=== PATIENT | male | born 1965 | race Caucasian/White ===

== ENCOUNTER 2018-03-06 16:22 | Emergency (ER) | payer SELFPAY | END 2018-03-07 07:32 | disposition left against medical advice (07) | LOC: ER 03-07 07:08 | DX: Z53.21 Procedure and treatment not carried out due to patient leaving prior to being seen by health care provider (principal) ==

== ENCOUNTER 2019-09-11 12:41 | Emergency (ER) | payer SELFPAY ==
[~2019-09-11] VITALS: Ht 160 cm; Wt 65.0 kg
[2019-09-11 12:53] VITALS: BP 145/99
== END 2019-09-11 19:07 | disposition left against medical advice (07) ==
LOC: ER 12:41
DX: Z53.21 Procedure and treatment not carried out due to patient leaving prior to being seen by health care provider (principal)

== ENCOUNTER 2024-04-21 02:17 | Emergency (ER) | payer MEDICAID ==
[~2024-04-21] VITALS: Ht 170.2 cm; Wt 73.0 kg
[2024-04-21] MEDS ORDERED: LIDOCAINE HCL/EPINEPHRINE 1%-EPI 1:100,000 20ML VIAL INFIL ONE (03:15)
[2024-04-21 03:42] LABS: BASOPHILS % 0.2 % (0.0-2.0); EOSINOPHILS % 0.3 % (0.0-5.0); HEMATOCRIT. 47.2 % (42.0-52.0); HEMOGLOBIN. 15.9 g/dL (14.0-18.0); LYMPHOCYTES % 7.8 % (20.0-50.0); MEAN CORPUSCULAR HEMOGLOBIN 30.6 pg (28.0-32.0); MEAN CORPUSCULAR HGB CONC 33.7 g/dL (31.0-37.0); MEAN PLATELET VOLUME 8.4 fl (7.4-10.4); MONOCYTES % 5.7 % (2.0-8.0); PLATELET 335 x1000/uL (130-400); RED BLOOD CELL COUNT 5.18 mill/uL (4.7-6.1); RED CELL DISTRIBUTION WIDTH 13.9 % (11.6-14.6); WHITE BLOOD COUNT 16.4 x1000/uL (4.5-11.0)
[2024-04-21] MEDS: CEFAZOLIN 1000MG PREMIX 50 ML IV ONE (04:10)
[2024-04-21] MEDS: ONDANSETRON HCL 4MG/2ML INJ IV STA (04:10)
[2024-04-21] MEDS: SODIUM CHLORIDE 0.9% 1,000 ML IV ONE (04:10)
[2024-04-21] MEDS: LEVETIRACETAM 500MG PREMIX 100 ML IV ONE (04:10)
[2024-04-21] MEDS: MORPHINE SULFATE 4 MG/ML INJ (FOR IV/IM USE) IV STA (04:13)
[2024-04-21 04:15] VITALS: O2SAT 98
[2024-04-21] MEDS: PROPOFOL 10MG/ML 100ML 100 ML IV ONE (04:15)
[2024-04-21] MEDS: ROCURONIUM BROMIDE 10MG/ML VIAL 5ML IV ONE (04:15)
[2024-04-21] MEDS: ETOMIDATE 2MG/ML 10ML VIAL IV ONE (04:15)
[2024-04-21] MEDS: TETANUS, DIPHTHERIA, PERTUSSIS VAC/PF 0.5ML (>10YR OLD) IM ONE (04:15)
[2024-04-21] MEDS ORDERED: NICARDIPINE 40MG/200ML PREMIX 200 ML IV PRN (04:30)
[2024-04-21] MEDS ORDERED: LABETALOL 5MG/ML 4ML INJ IV ONE (04:30)
[2024-04-21] MEDS ORDERED: LABETALOL 5MG/ML 4ML INJ IV NR (04:30)
[2024-04-21 04:42] VITALS: PULSE 82; RESP 20; O2SAT 98
[2024-04-21] MEDS ORDERED: PROPOFOL 10MG/ML 100ML 100 ML IV ONE (05:00)
[2024-04-21 05:03] VITALS: BP 113/73; PULSE 114; RESP 25; TEMP 36.89184; O2SAT 98
== END 2024-04-21 05:02 | disposition short-term general hospital (02) ==
LOC: ER 02:17
DX: S22.32XA Fracture of one rib, left side, initial encounter for closed fracture (principal); S06.4XAA Epidural hemorrhage with loss of consciousness status unknown, initial encounter; S06.5XAA Traumatic subdural hemorrhage with loss of consciousness status unknown, initial encounter; J96.00 Acute respiratory failure, unspecified whether with hypoxia or hypercapnia; Y00.XXXA Assault by blunt object, initial encounter; Y93.89 Activity, other specified; Y92.89 Other specified places as the place of occurrence of the external cause; Y99.8 Other external cause status
CPT/HCPCS: 85025; 36415; 71045; 70450; 71260; 72125; 74177; 90715; 31500; 96368; 90471; 96365; 96375; 99291; Q9967; Z7610 ×6; J1953; J0690; J3490 ×3; J2405; J2704; J2270; J7030; 94003